=== PATIENT | female | born 1995 | race Caucasian/White ===

== ENCOUNTER → 2016-11-24 01:27 | Observation (INO) ==
[2016-11-23 23:57] LABS: Bilirubin,Urine Negative (Negative); Blood,Urine Large (Negative); Clarity,Urine Cloudy (Clear); Color,Urine Yellow (Yellow); Glucose,Urine (UA) Normal (Normal); Ketones,Urine Negative (Negative); Leukocyte Esterase,Urine Moderate (Negative); Nitrite,Urine Negative (Negative); Protein,Urine 100 mg/dL (Neg-Trace); Urobilinogen,Urine Normal (Normal)
[2016-11-23 23:59] LABS: Bacteria,Urine None Seen per hpf (None-Few); Hyaline Casts,Urine None Seen per lpf (None-Few); RBC,Urine TNTC per hpf (0-3); Squamous Epithelial Cell,Urine Many per lpf (None-Few); WBC,Urine 50-100 per hpf (0-3)
--- NOTE | 2016-11-24 01:01 | OB/GYN Progress Note ---
Date of Encounter: 11/24/16 Time of Encounter: 00:58 - Assessment and Plan (1) Hematuria Current Visit: Yes Status: Acute Urinalysis positive for protein, blood, leukocyte esterase -Many squamous epitheal cells, no bacteria seen -culture pending Follow-up outpatient with Dr. Schultz. Qualifiers: Hematuria type: gross Qualified Code(s): R31.0 - Gross hematuria (2) 22 weeks gestation of Current Visit: Yes Status: Acute Subjective - Subjective Principal diagnosis: hematuria Interval history: Paris Cotter is a 21 yo at 22.4 weeks gestation who presents with a complaint of hematuria immediately prior to arrival (~ 11 pm). She has a PMH of HTN but has not been on antihypertensives during . Denies vaginal bleeding, loss of fluid, dizziness, blurred vision, headache. Reports good movement. Objective - Vital Signs Vital Signs: Intake and Output 11/23/16 11/23/16 11/24/16 15:59 23:59 07:59 Other: Weight 92.6 kg - Exam Auscultation: bilateral: normal Abdomen: Present: normal appearance, soft, gravid - Labs Labs: Abnormal lab results Urine Clarity Cloudy (Clear) A 11/23/16 23:45 Urine Protein 100 mg/dL (Neg-Trace) H 11/23/16 23:45 Urine Blood Large (Negative) H 11/23/16 23:45 Ur Leukocyte Esterase Moderate (Negative) H 11/23/16 23:45 Urine Microscopic RBC TNTC per hpf (0-3) H 11/23/16 23:45 Urine Microscopic WBC 50-100 per hpf (0-3) H 11/23/16 23:45 Ur Squamous Epith Cells Many per lpf (None-Few) H 11/23/16 23:45 Ur Culture Indicated? YES (NO) A 11/23/16 23:45
== END | disposition home or self-care (01) ==
LOC: 1NENULAB
PROVIDERS: ADMIT Student in an Organized Health Care Education/Training Program; ATTEND Student in an Organized Health Care Education/Training Program

== ENCOUNTER 2021-09-03 15:59 | Observation (INO) ==
[2021-09-03 16:54] LABS: Bilirubin,Urine Negative (Negative); Blood,Urine Negative (Negative); Clarity,Urine Clear (Clear); Color,Urine Light-Yellow (Yellow); Glucose,Urine (UA) Normal (Normal); Ketones,Urine Negative (Negative); Leukocyte Esterase,Urine Negative (Negative); Nitrite,Urine Negative (Negative); Protein,Urine Negative (Neg-Trace); Specific Gravity,Urine 1.015 (1.010-1.025); Urobilinogen,Urine Normal (Normal)
[2021-09-03 16:57] LABS: Basophils % 0.4 %; Eosinophils # 0.3 K/mcL (0.0-0.6); Eosinophils % 2.8 %; Hematocrit 46.7 % (35.3-44.9); Immature Granulocytes % 0.3 % (0-4); Lymphocytes % 28.1 %; Mean Corpuscular HGB Conc 32.1 g/dL (31.6-35.5); Mean Corpuscular Hemoglobin 27.6 pg (28.0-33.3); Mean Platelet Volume 10.4 fL (9.4-12.4); Monocytes # 0.7 K/mcL (0.0-1.3); Monocytes % 6.3 %; Neutrophils # 6.6 K/mcL (1.6-8.9); Platelet Count 336 K/mcL (140-400); Red Blood Count 5.43 M/mcL (3.82-4.97); Red Cell Distribution Width 13.5 % (11.5-14.5); Segmented Neutrophils % 62.1 %; White Blood Count 10.6 K/mcL (4.3-11.1)
[2021-09-03 17:12] LABS: Alanine Aminotransferase 14 Units/L (7-52); Albumin 4.5 g/dL (3.5-5.7); Albumin/Globulin Ratio 1.6 (1.1-2.2); Alkaline Phosphatase 134 Units/L (34-104); Aspartate Amino Transferase 13 Units/L (13-39); BUN/Creatinine Ratio 8 (6-26); Bilirubin,Indirect 0.4 mg/dL (0.0-1.0); Bilirubin,Total 0.4 mg/dL (0.3-1.0); Blood Urea Nitrogen 7 mg/dL (6-20); Carbon Dioxide 26 mEq/L (23-29); Chloride 106 mEq/L (98-107); Globulin 2.9 g/dL (2.4-3.5); Glucose 85 mg/dL (70-105); Lipase 25 Units/L (11-82); Osmolality,Calculated 279 (280-300); Sodium 136 mEq/L (136-145); Total Protein 7.4 g/dL (6.4-8.9); eGFR For African Americans > 60 (> 60); eGFR For Non-African Americans > 60 (> 60)
[2021-09-03] MEDS ORDERED: *HR* FentaNYL (PF) 100 MCG/2 ML VIAL ONE (19:21)
[2021-09-03] MEDS ORDERED: *HR* Propofol 200 MG/20 ML VIAL IVP ONE (19:22)
[2021-09-03] MEDS ORDERED: *HR* Midazolam HCl 2 MG/2 ML VIAL ONE (19:22)
[2021-09-03] MEDS ORDERED: Lidocaine -MPF 2% 2 ML VIAL ONE (19:23)
[2021-09-03] MEDS ORDERED: *HR* Rocuronium Bromide 50 MG/5 ML VIAL ONE (19:23)
[2021-09-03] MEDS ORDERED: Lidocaine HCL 4 ML Topical Solution (Laryng-O-Jet Kit Sterile Pak) TP ONE (19:24)
[2021-09-03] MEDS ORDERED: 0.9 % Sodium Chloride 1,000 ML IVC SCH ×2 (19:30→22:04)
[2021-09-03] MEDS ORDERED: Ampicillin/Sulbactam 3,000 MG in 0.9 % Sodium Chloride Mini Bag 100 ML IVPB ONE (19:32)
[2021-09-03] MEDS ORDERED: Ondansetron 4 MG/2 ML VIAL IVP PRN ×3 (19:33→22:04)
[2021-09-03] MEDS ORDERED: Scopolamine Patch 1.5 MG PATCH.TD72 TD ONE (19:48)
[2021-09-03] MEDS ORDERED: Scopolamine Patch 1.5 MG PATCH.TD72 ONE (19:50)
[2021-09-03] MEDS ORDERED: Ondansetron 4 MG/2 ML VIAL ONE (20:04)
[2021-09-03] MEDS ORDERED: Acetaminophen IV 1,000 MG/100 ML BAG IVPB ONE (20:06)
[2021-09-03] MEDS ORDERED: Ketamine HCL *QUVA* 50mg (1mL) SYRINGE ONE (20:07)
[2021-09-03] MEDS ORDERED: Ketorolac 30 MG/ML VIAL ONE (20:07)
[2021-09-03] MEDS ORDERED: Promethazine 6.25 MG in Water for inj. (sterile) 20 ML IVPB PRN (20:54)
[2021-09-03] MEDS ORDERED: *HR* HYDROmorphone PF 0.5 MG/0.5 ML SYRINGE IVP PRN (20:54)
[2021-09-03] MEDS ORDERED: Sugammadex Sodium 200 MG/2 ML VIAL IV ONE (20:57)
[2021-09-03] MEDS ORDERED: *HR* HYDROMORPHONE 2 MG/ML VIAL ONE (20:57)
[2021-09-03] MEDS ORDERED: Ringers Solution, Lactated 1,000 ML ONE (21:25)
[2021-09-03] MEDS ORDERED: *HR* OxyCODONE/APAP 5/325 TABLET PO PRN (22:04)
[2021-09-03] MEDS: Ampicillin/Sulbactam 3,000 MG in 0.9 % Sodium Chloride Mini Bag 100 ML IVPB SCH (22:25)
[2021-09-04] MEDS ORDERED: Ketorolac 30 MG/ML VIAL IVP SCH
[2021-09-04 03:35] LABS: Basophils % 0.2 %; Eosinophils % 0.1 %; Hematocrit 42.6 % (35.3-44.9); Hemoglobin 13.7 g/dL (11.5-15.4); Immature Granulocytes % 0.4 % (0-4); Lymphocytes # 0.8 K/mcL (0.6-4.6); Lymphocytes % 6.2 %; Mean Corpuscular HGB Conc 32.2 g/dL (31.6-35.5); Mean Corpuscular Hemoglobin 27.5 pg (28.0-33.3); Mean Corpuscular Volume 85.4 fL (83.0-100.0); Mean Platelet Volume 10.5 fL (9.4-12.4); Monocytes # 0.1 K/mcL (0.0-1.3); Monocytes % 0.9 %; Neutrophils # 11.8 K/mcL (1.6-8.9); Platelet Count 292 K/mcL (140-400); Red Blood Count 4.99 M/mcL (3.82-4.97); Red Cell Distribution Width 13.4 % (11.5-14.5); Segmented Neutrophils % 92.2 %; White Blood Count 12.8 K/mcL (4.3-11.1)
[2021-09-04 03:54] LABS: Alanine Aminotransferase 37 Units/L (7-52); Albumin 4.1 g/dL (3.5-5.7); Albumin/Globulin Ratio 1.6 (1.1-2.2); Alkaline Phosphatase 121 Units/L (34-104); Aspartate Amino Transferase 46 Units/L (13-39); BUN/Creatinine Ratio 11 (6-26); Bilirubin,Total 0.4 mg/dL (0.3-1.0); Blood Urea Nitrogen 9 mg/dL (6-20); Calcium 10.2 mg/dL (8.6-10.3); Carbon Dioxide 19 mEq/L (23-29); Chloride 108 mEq/L (98-107); Globulin 2.5 g/dL (2.4-3.5); Glucose 143 mg/dL (70-105); Osmolality,Calculated 279 (280-300); Potassium 4.3 mEq/L (3.5-5.1); Sodium 134 mEq/L (136-145); Total Protein 6.6 g/dL (6.4-8.9); eGFR For African Americans > 60 (> 60); eGFR For Non-African Americans > 60 (> 60)
[2021-09-04] MEDS ORDERED: Ibuprofen 800 MG TABLET PO ONE (06:26)
[2021-09-04 06:59] VITALS: BP 113/74; PULSE 65; TEMP 97.9; O2SAT 95
[2021-09-04] MEDS: Ampicillin/Sulbactam 3,000 MG in 0.9 % Sodium Chloride Mini Bag 100 ML IVPB SCH (08:21)
== END 2021-09-04 09:59 | disposition home or self-care (01) ==
LOC: 3ANU 15:59 → EMEROOARM 15:59 → 3ANU 19:35
PROVIDERS: ADMIT Surgery; ATTEND Surgery